=== PATIENT | female | born 1960 | race Caucasian/White ===

== ENCOUNTER 2022-09-09 07:29 | Outpatient (CLI) | payer BC, SELFPAY ==
--- NOTE | 2022-09-09 07:45 | US_ITS ---
WS: [id number] ULTRASOUND THYROID TECHNIQUE: Ultrasound of the thyroid. CLINICAL INFORMATION: thryoid nodule COMPARISON: None. FINDINGS: Thyroid: Heterogeneous thyroid echotexture bilaterally. No cystic or solid nodules. Previous reported LEFT thyroid nodule per patient not seen today. Right thyroid lobe: 4.6 cm x 1.7 cm x 1.7 cm Left thyroid lobe: 5.0 cm x 1.8 cm x 1.7 cm. Isthmus: 0.4 mm. Cervical lymphadenopathy: A few prominent cervical lymph nodes with normal fatty yoseph. US/US thyroid [id number] IMPRESSION: 1. Heterogeneous thyroid echotexture 2. No visualized nodules today. No lesions to target for biopsy. 3. No other suspicious findings.
== END 2022-09-09 07:30 | disposition home or self-care (01) ==
PROVIDERS: PCP Family Medicine; Visit Provider Family Medicine
DX: E04.1 Nontoxic single thyroid nodule (principal)
CPT/HCPCS: 76536; 80053; 80061; 82306; 84439; 84443; 84480; 85025

== ENCOUNTER → 2022-11-29 09:49 | Outpatient (BNVA) | payer BC, SELFPAY | PROVIDERS: PCP Family Medicine; Visit Provider Family Medicine | DX: Z01.419 Encounter for gynecological examination (general) (routine) without abnormal findings (principal) | CPT/HCPCS: 88175 ==

== ENCOUNTER 2022-12-13 07:28 | Outpatient (CLI) | payer BC, SELFPAY ==
--- NOTE | 2022-12-13 07:40 | MM_ITS ---
WS: [id number] SCREENING DIGITAL TOMOSYNTHESIS MAMMOGRAM WITH CAD HISTORY: screening mammogram COMPARISON: 10/30/2018 Bilateral CC and MLO with tomosynthesis views submitted. Synthetic mammography reviewed. Computer aid ed detection analyzed. Breast composition: There are scattered areas of fibroglandular density. No suspicious masses, microc alcifications or architectural distortion. IMPRESSION: MM/[place] [id number] BI-RADS: 1-Negative FOLLOW UP: 1 Year Follow-up
== END 2022-12-13 07:29 | disposition home or self-care (01) ==
PROVIDERS: PCP Family Medicine; Visit Provider Family Medicine
DX: Z12.31 Encounter for screening mammogram for malignant neoplasm of breast (principal)
CPT/HCPCS: 77063; 77067